=== PATIENT | female | born 1985 | race Caucasian/White ===

== ENCOUNTER → 2024-10-17 | Outpatient (CLI) | payer OTHER ==
--- NOTE | 2024-10-17 11:24 | US ---
EXAMINATION TYPE: US pelvis complete transvag DATE OF EXAM: 10/17/2024 COMPARISON: NONE CLINICAL INDICATION: Female, 39 years old with history of R10.2 FEMALE PELV PAIN R10.9 ABD/PELV PAIN; Partial hysterectomy 2022,patient states she still has cervix. 3 prior c-sections. right pelvic pain TECHNIQUE: Transvaginal (TV) and Transabdominal (TA) . Transabdominal grayscale sonographic images of the pelvis were acquired. Transvaginal sonographic im ages were medically necessary to better assess the following anatomy: cervix Doppler imaging: Not performed. FINDINGS: Date of LMP: unknown EXAM MEASUREMENTS: Uterus: Surgically absent Endometrial Stripe: Surgically absent Right Ovary: 2.9 x 2.0 x 2.4 cm Left Ovary: 2.8 x 1.1 x 2.3 cm 1. Uterus: Surgically absent. cervix appears bulky. anechoic area = 1.1cm ?nabothian cyst anteriorly. 2. Endometrium: Surgically absent 3. Right Ovary: Simple cyst = 1.5 x 1.4 x 1.7cm 4. Left Ovary: follicles noted 5. Bilateral Adnexa: wnl 6. Posterior cul-de-sac: wnl IMPRESSION: Prominence of the remnant cervix. Advise correlation with direct visualization and Pap sm ear to exclude mass/neoplasm. O-RADS 2021 [email or web address] [facility], , 10/17/2024 11:22 AM
== END | disposition home or self-care (01) ==
LOC: RADUSWWP 10:18
PROVIDERS: ATTEND Family Medicine
DX: N83.201 Unspecified ovarian cyst, right side (principal)
CPT/HCPCS: 76830; 76856

== ENCOUNTER → 2024-10-31 | Outpatient (CLI) | payer OTHER ==
--- NOTE | 2024-10-31 12:33 | MM ---
Reason for Exam: Screening (asymptomatic). Last mammogram was performed 2 year(s) and 4 month(s) ago. Patient History: Menarche at age 13. First Full-Term at age 26. Left ovary removed at age 36. Right ovary removed at age 36. Hysterectomy at age 36. 07/05/2022, US biopsy breast VAD RT on the Right side. Last menstrual period: Risk Values: Zenaida 5 year model risk: 0.8%. NCI Lifetime model risk: 13.7%. Prior Study Comparison: 06/13/2022 Bilateral MG 3D screening mammo w/cad, [facility] [place]. Tissue Density: The breasts are heterogeneously dense, which may obscure small masses. Findings: Analyzed By CAD. Right breast biopsy clip. Right breast: There is no suspicious group of microcalcifications or new suspicious mass. Left breast: There is no suspicious group of microcalcifications or new suspicious mass. Overall Assessment: Benign, BI-RAD 2 Management: Screening Mammogram of both breasts in [address] [facility] will attempt to contact patient to return for supplemental views and ultrasound if indicated. Patient should continue monthly self-breast exams. A clinical breast exam by your physician is recommended on an annual basis. This exam should not preclude additional follow-up of suspicious palpable abnormalities. Note on Zenaida scores and lifetime risk: 1. A Zenaida score greater than 3% is considered moderate risk. If this is the case, consider specialist referral to assess eligibility for a risk reducing agent. 2. If overall lifetime risk for the development of breast cancer is 20% or higher, the patient may qualify for future screening with alternating mammogram and breast MRI. [facility], , 10/31/2024 12:30 PM. Electronically signed and approved by: Nikunj Torres DO
== END | disposition home or self-care (01) ==
LOC: RADMAMWWP 10:18
PROVIDERS: ATTEND Family Medicine
DX: Z12.31 Encounter for screening mammogram for malignant neoplasm of breast (principal); R92.333 Mammographic heterogeneous density, bilateral breasts
CPT/HCPCS: 77063; 77067